=== PATIENT | female | born 1985 ===

== ENCOUNTER 2020-01-18 13:00 | Outpatient (RCR) | payer BC | END 2020-01-23 | disposition home or self-care (01) | LOC: WSPT | DX: Z98.890 Other specified postprocedural states (principal) ==

== ENCOUNTER 2020-03-14 12:00 | Outpatient (RCR) | payer BC | END 2020-05-08 | disposition home or self-care (01) | LOC: WSPT | DX: Z98.890 Other specified postprocedural states (principal) ==